=== PATIENT | female | born 1975 | race Caucasian/White ===

== ENCOUNTER 2016-08-11 13:32 | Emergency (ER) | payer MEDICAID ==
[~2016-08-11] VITALS: Ht 170.2 cm; Wt 125.0 kg
[2016-08-11] MEDS ORDERED: OXYB15TA9 PO (15:27)
[2016-08-11] MEDS ORDERED: LORA1TAB PO (15:27)
[2016-08-11] MEDS ORDERED: OMEP20TA80 PO (15:27)
[2016-08-11] MEDS ORDERED: CEPH250C2 PO (15:27)
[2016-08-11] MEDS ORDERED: SERT-112 PO (15:27)
[2016-08-11] MEDS ORDERED: ARIP15TA2 PO (15:27)
[2016-08-11 20:21] LABS: CLARITY URINE CLEAR (CLEAR); COLOR URINE YELLOW (YELLOW); GLUCOSE URINE NEGATIVE (NEGATIVE); KETONES URINE NEGATIVE (NEGATIVE); LEUKOCYTE ESTERASE URINE 1+ (NEGATIVE); NITRITE URINE NEGATIVE (NEGATIVE); OCCULT BLOOD URINE TRACE (NEGATIVE); PH URINE 7.5 (4.5-8.0); PROTEIN URINE NEGATIVE (NEGATIVE); SPECIFIC GRAVITY URINE 1.022 (1.005-1.030); UROBILINOGEN URINE 0.2 E.U./dL (0.2-1.0)
[2016-08-11 21:25] LABS: BASOPHILS % 0.4 % (0.0-2.0); EOSINOPHILS % 0.1 % (0.0-5.0); HEMOGLOBIN. 14.5 g/dL (12.0-16.0); MEAN PLATELET VOLUME 8.5 fl (7.4-10.4); MONOCYTES % 3.4 % (2.0-8.0); NEUTROPHILS % 84.1 % (40.0-76.0); PLATELET 177 x1000/uL (130-400); RED BLOOD CELL COUNT 4.67 mill/uL (4.2-5.4)
[2016-08-11 21:28] LABS: INR 1.1; PROTHROMBIN TIME 11.2 sec
[2016-08-11 21:35] LABS: CARBON DIOXIDE 28 mEq/L (21-32); CHLORIDE 104 mEq/L (98-107)
[2016-08-11] MEDS ORDERED: ACETAMINOPHEN 325MG TABLET PO ONE (23:45)
[2016-08-12 00:12] VITALS: BP 121/69
== END 2016-08-12 00:14 | disposition home or self-care (01) ==
LOC: ER 18:12
DX: N39.0 Urinary tract infection, site not specified (principal); K76.0 Fatty (change of) liver, not elsewhere classified; Z88.0 Allergy status to penicillin; Z88.8 Allergy status to other drugs, medicaments and biological substances; Z98.890 Other specified postprocedural states; Z86.59 Personal history of other mental and behavioral disorders
CPT/HCPCS: 36415; 76705; 80053; 81001; 81025; 83690; 85025; 85610; 99285